=== PATIENT | female | born 1955 | race Hispanic/Latino ===

== ENCOUNTER 2020-01-07 12:27 | Inpatient (IN) | payer SELFPAY ==
[~2020-01-07] VITALS: Ht 154.9 cm; Wt 68.9 kg
--- OUTSIDE RECORDS SUMMARY | 2020-01-07 12:30 | XMS REPORT | Clinical Summary ---
Author Author [facility] Organization [facility] Address Unknown Phone Unavailable Care Team Providers Care Lead Pressman Name Role Phone PCP Unavailable Allergies Comments Active Allergy Reactions Severity Noted Date No Known Drug Allergies 07/10/2016 Medications End Date Status Medication Sig Dispensed Refills Start Date Active dexlansoprazole Take 1 180 capsule 2 (DEXILANT) 60 mg delayed capsule by 5 release mouth daily. capsuleIndications: GERD (gastroesophageal reflux disease) Active OMEPRAZOLE MAGNESIUM Take by 0 (PRILOSEC OTC OR) mouth. Active omeprazole (PRILOSEC) 20 Take 1 60 capsule 3 1 mg delayed release capsule by 5 capsuleIndications: mouth 2 times Gastroesophageal reflux daily. disease without esophagitis Active oxybutynin (OXYTROL) 3.9 Apply 1 Patch 8 Patch 3 08/15/ mg/24 hr to skin as 5 patchIndications: Urge directed 2 incontinence of urine times weekly. Active tolterodine (DETROL LA) 2 Take 1 30 capsule 3 mg extended release capsule by 6 capsuleIndications: mouth daily. Increased urinary frequency Active famotidine (PEPCID) 40 mg Take 1 tablet 90 tablet 3 tabletIndications: by mouth 6 Dyspepsia daily. Active naproxen (NAPROSYN) 375 Take 1 tablet 90 tablet 3 mg tabletIndications: by mouth 2 6 Left arm pain times daily (with meals). Active diazePAM (VALIUM) 2 mg Take 1 tablet 20 tablet 0 1 tabletIndications: by mouth 6 Phobia, flying every 6 hours as needed for Anxiety. Active lisinopril-hydrochlorothi Take 1 tablet 90 tablet 3 azide (ZESTORETIC) 20-25 by mouth 6 mg per tabletIndications: daily. Essential hypertension Active fenofibrate Take 1 tablet 90 tablet 3 nanocrystallized (TRICOR) by mouth 6 145 mg tabletIndications: daily. Hypertriglyceridemia Active mometasone (NASONEX) 50 1 [place] by 34 g 3 mcg/actuation nasal each nostril 6 sprayIndications: route daily. Seasonal allergic rhinitis, unspecified allergic rhinitis trigger Active loratadine (CLARITIN) 10 Take 1 tablet 90 tablet 1 mg tabletIndications: by mouth 6 Seasonal allergic daily. rhinitis, unspecified allergic rhinitis trigger Active codeine-guaiFENesin Take 10 mL by 120 mL 0 06/20 (CHERATUSSIN AC) 10-100 mouth 3 times 6 mg/5 mL syrupIndications: daily as Viral upper respiratory needed for illness Cough or Congestion. Active ibuprofen (MOTRIN) 600 mg Take 1 tablet 30 tablet 0 tabletIndications: Acute by mouth 6 pharyngitis, unspecified every 8 hours etiology, Viral upper as needed for respiratory illness Pain or Fever > 100.5. Active Problems Problem Noted Date Essential hypertension 09/08/2015 Rosacea 06/30/2015 Overview: 06/28/15 Hx 10 yrs,treated for last 6 y rs Increased urinary frequency 06/30/2015 Overview: 06/28/15 Problem is ongoing for last 4 years and seems to get worse. Also c/o multiple UTI. She believes frequenc y is due to cystopexy. Immunizations Name Administration Dates Next Due Influenza Vaccine 06/01/2016, 11/17/2015 (Def erred: Patient Refused) Family History Medical History Relation Name Comments Cancer Brother Leukemia Brother Heart Father Ulcers Mother Relation Name Status Comments Brother Brother Brother Alive Brother Alive Brother Alive Brother Alive Brother Alive Brother Alive Brother old age Daughter Alive Daughter Alive Daughter Alive Daughter Alive Father Mother Sister Alive Son Alive Son Alive Social History Date Tobacco Use Types Packs/Day Years Used Never Smoker Smokeless Tobacco: Never Used Tobacco Cessation: Counseling Given: No Drinks/Week oz/Week Comments Alcohol Use 0 Standard drinks or equivalent 0.0 Not Asked Sex Assigned at Date Recorded Not on file Industry Job Start Date Occupation Not on file Not on file Not on file Travel End Travel History Travel Start No recent travel history available. Last Filed Vital Signs Not on file Plan of Treatment Health Maintenance Due Date Last Done Comments Colorectal Cancer Scrn 11/27/2007 Annual (FIT/FOBT) Age 50 to 75 Breast Cancer Scrn 07/11/2017 07/11/2016, 015 (Yearly) Results Not on fileafter 01/06/2019 Insurance Type Payer Benefit Subscriber ID Effective Phone Address Plan / Dates Group [facility] SELF-PAY SELF-PAY xxxxxx 2016- [phone] [id number] [place] [address] [phone] Janett Newman Self [address]Home) [place] [address]
--- OUTSIDE RECORDS SUMMARY | 2020-01-07 12:30 | XMS REPORT ---
Author Author [facility] t Organization [facility] Address [address] [place] [address] Phone Unavailable Care Team Providers Care Schedule Announcer Name Role Phone Unavailable Unavailable Problems Condition Name Condition Details Condition Category Status Onset Date Resolution Date Last Treatment Date Treating Clinician Comments Source Essential hypertension Essential hypertension Disease Active 2015-09-08 00:00:00 [facility] Rosacea Rosacea Disease Active 2015-06-30 00:00:00 Overview: 06/28/15 Hx 10 yrs,treated for last 6 yrs [facility] Increased urinary frequency Increased urinary frequency Disease Active 2015-06-30 00:00:00 Overview: Problem is ongoing for last 4 years and seems to get worse. Also c/o multiple UTI. She believes frequency is due to cystopexy. [facility] Allergies, Adverse Reactions, Alerts This patient has no known allergies or adverse reactions. Family History Family Member Diagnosis Comments Start Date Stop Date Source Natural brother Cancer [facility] alth Natural brother Leukemia [facility] alth Natural father Heart [facility] Natural mother Ulcers [facility] Social History Social Habit Start Date Stop Date Quantity Comments Source Sex Assigned At [facility] Alcohol intake 2016-10-02 00:00:00 2016-10-02 00:00:00 [facility] Smoking Status Start Date Stop Date Source Never smoker [facility] Medications Ordered Medication Name Filled Medication Name Start Date Stop Da te Current Medication? Ordering Clinician Indication Dosage Frequency Signature (SIG) Comments Components Source codeine-guaiFENesin (CHERATUSSIN AC) 10-100 mg/5 mL syrup 2016-07-10 00:00:00 Yes Viral upper respiratory illness 10mL Take 10 mL by mouth 3 times daily as needed for Cough or Congestion. [facility] ibuprofen (MOTRIN) 600 mg tablet 2016-07-10 00:00:00 Yes Viral upper respiratory illness 600mg Take 1 tablet by carina th every 8 hours as needed for Pain or Fever > 100.5. [facility] fenofibrate nanocrystallized (TRICOR) 145 mg tablet 2015-08 00:00:00 Yes Hypertriglyceridemia 145mg QD Take 1 tablet by mouth daily. [facility] mometasone (NASONEX) 50 mcg/actuation nasal spray 2016-06-29 00:00:00 Yes Seasonal allergic rhinitis, unspecified allergic rhinitis trigger 1{spray} QD 1 [place] by each nostril route daily. [facility] loratadine (CLARITIN) 10 mg tablet 2016-06-29 00:00:00 Yes Seasonal allergic rhinitis, unspecified allergic rhinitis trigger 10mg QD Take 1 tablet by mouth daily. [facility] diazePAM (VALIUM) 2 mg tablet 2016-06-01 00:00:00 Yes Phobia, flying 2mg Take 1 tablet by mouth every 6 hours as needed for Anxiety. [facility] lisinopril-hydrochlorothiazide (ZESTORETIC) 20-25 mg per tab let 2016-06-01 00:00:00 Yes Essential hypertension 1{tbl} QD Take 1 t ablet by mouth daily. [facility] famotidine (PEPCID) 40 mg tablet 2016-03-26 00:00:00 Yes Dyspepsia 40mg QD Take 1 tablet by mouth daily. [facility] naproxen (NAPROSYN) 375 mg tablet 2016-03-26 00:00:00 Ye s Left arm pain 375mg Take 1 tablet by mouth 2 times daily (with meals). [facility] tolterodine (DETROL LA) 2 mg extended release capsule 2015-10-31 00:00:00 Yes Increased urinary frequency 2mg QD Take 1 capsule by mo ut daily. [facility] OMEPRAZOLE MAGNESIUM (PRILOSEC OTC OR) 2015-10-20 14:46:56 Yes Take by mouth. [facility] oxybutynin (OXYTROL) 3.9 mg/24 hr patch 2015-08-15 00:00:00 Yes Urge incontinence of urine 1{patch} Apply 1 Patch to s kin as directed 2 times weekly. [facility] omeprazole (PRILOSEC) 20 mg delayed release capsule 2014-08 00:00:00 Yes Gastroesophageal reflux disease without esophagitis 20mg Q.5D Take 1 capsule by mouth 2 times daily. [facility] dexlansoprazole (DEXILANT) 60 mg delayed release capsule 2015-02-17 00:00:00 Yes GERD (gastroesophageal reflux disease) 60mg QD Take 1 capsule by mouth daily. [facility] Immunizations Ordered Immunization Name Filled Immunization Name Date Status Comments Source Influenza Vaccine 2016-06-01 00:00:00 Completed [facility] Procedures This patient has no known procedures. Plan of Care Planned Activity Planned Date Details Comments Source Future Scheduled Test 2017-07-11 00:00:00 Breast Cancer Scrn (Yearly) [code = Breast Cancer Scrn (Yearly)] [facility] Future Scheduled Test 2007-11-27 00:00:00 Colorectal Cancer Scrn Annual (FIT/FOBT) Age 50 to 75 [code = Colorectal Cancer Scrn Annual (FIT/FOBT) Age 50 to 75] [facility] Results Test Description Test Time Test Comments Results Result Comments Source SCR MAMM BILATERAL CAD DIGITAL 2019-07-10 15:10:57 - SCR MAMM BILATERAL CAD DIGITALBILATERAL DIGITAL SCREENING MAMMOGRAM WITH CAD: 07/10/2019CLINICAL: Asymptomatic. Current mammographic images were evaluated by either a Twiigg M- Vu or a NCR ImageChecker CAD (computer aided detection system). Comparison is made to exams dated 07/05/2018 mammogram, 06/27/2017 mammogram - [facility], and 07/11/2016 mammogram - [facility]. There are scattered fibroglandular tissues in both breasts. No suspicious mass, architectural distortion, malignant type calcification, or lymph node abnormality detected. Breast architecture is stable compared to prior exams.IMPRESSION: NEGATIVEThere is no mammographic evidence of malignancy. Resume annual screening mammography in one year. David Lawrence M.D. qn/penrad:07/10/2019 15:10:57 Attending Technologist: Olimpia SCHREIBER, [facility] Technologist: Nora SCHREIBER, [facility] sent: BIRADS 1-2 Normal Mammogram BI-RADS: 1 Negative SCR MAMM BILATERAL CAD DIGITAL 2018-07-07 08:47:08 - SCR MAMM BILATERAL CAD DIGITALBILATERAL DIGITAL SCREENING MAMMOGRAM WITH CAD: 07/05/2018CLINICAL: Asymptomatic. Current mammographic images were evaluated by either a Twiigg M- Vu or a NCR ImageChecker CAD (computer aided detection system). Comparison is made to exams dated 06/27/2017 mammogram - [facility], 07/11/2016 mammogram, and 06/27/2015 mammogram - [facility]. There are scattered fibroglandular tissues in both breasts. No suspicious mass, architectural distortion, malignant type calcification, or lymph node abnormality detected. Breast architecture is stable compared to prior exams.IMPRESSION: NEGATIVEThere is no mammographic evidence of malignancy. Resume annual screening mammography in one year. David villarreal/penautumn:07/07/2018 08:47:08 Water Pollution Control Inspector: Dena SCHREIBER, [facility] sent: BIRADS 1-2 Normal Mammogram BI-RADS: 1 Negative
--- NOTE | 2020-01-07 13:18 | Diagnostic Imaging Report ---
X-ray chest frontal view Comparison: None History: Burning sensation Findings: Normal central airways, cardiac silhouette, diaphragms, pleural spaces, lung nunez, bony thorax and upper abdomen. The descending thoracic aorta is slightly prominent. Impression: No acute cardiopulmonary abnormality. Signed by: Robin Callejas MD on 01/07/2020 1:15 PM
[2020-01-07] MEDS ORDERED: ASPIRIN 325 MG TAB PO ONE (13:45)
[2020-01-07] MEDS ORDERED: ENOXAPARIN INJ 80 MG/0.8 ML SYR SC SCH (13:45)
--- NOTE | 2020-01-07 14:08 | Emergency Department Note ---
History of Present Illnes History of Present Illness Chief Complaint: Chest Pain History of Present Illness This is a 64 year old female with left side chest pain, no radiation, n o diaphoresis . Historian: Patient, Family Member Onset (how long ago): hour(s) (1) Location: left chest Quality: dull Radiation: non-radiation Severity: mild Onset quality: gradual Duration (how long): day(s) (1) Timing of current episode: intermittent Progression: waxing and waning Chronicity: new Relieving factors: none Exacerbating factors: none Associated symptoms: denies other symptoms Past Medical/Family History Physician Review I have reviewed the patient's past medical and family history. Any updates have been documented here. Past Medical History Recent Fever: No Clinical Suspicion of Infectio: No New/Unexplained Change in Ment: No Past Medical History: Hypertension, Hyperlipedemia Past Surgical History: Cholecysctectomy, Appendectomy, Hysterectomy Social History Smoking Cessation: Never Smoker Counseling Performed: No Alcohol Use: None Any Illegal Drug Use: No TB Exposure/Symptoms: No Physically hurt or threatened: No Other Last Tetanus: unknown Any Pre-Existing Lines (PICC,: No Is patient up to date on immun: Yes Last Flu: none Last Pneumovax: none Review of Systems Review of Systems Constitutional: no symptoms EENTM: no symptoms Cardiovascular: no symptoms, chest pain Respiratory: no symptoms Gastrointestinal: no symptoms Genitourinary: no symptoms Musculoskeletal: no symptoms Neurological: no symptoms Psychological: no symptoms Endocrine: no symptoms Hematological/Lymphatic: no symptoms Review of other systems All other systems reviewed and negative. Physical Exam Related Data Triage Vital Signs Vital Signs Date Time Temp Pulse Resp B/P (MAP) Pulse Ox O2 Delivery O2 Flow Rate FiO2 01/07/20 12:35 98.4 82 17 130/62 100 Vital signs reviewed: Yes Physical Exam CONSTITUTIONAL Constitutional: well-developed, well-nourished HENT HENT: normocephalic, atraumatic, oropharynx clear/moist, nose normal HENT L/R: left ext ear normal, right ext ear normal EYES Eyes: PERRL, conjunctivae normal NECK Neck: ROM normal PULMONARY Pulmonary: effort normal, breath sounds normal CARDIOVASCULAR Cardiovascular: regular rhythm, heart sounds normal, capillary refill normal, normal rate GASTROINTESTINAL Abdominal: soft, nontender, bowel sounds normal GENITOURINARY Genitourinary: exam deferred SKIN Skin: warm, dry MUSCULOSKELETAL Musculoskeletal: ROM normal NEUROLOGICAL Neurological: alert, oriented x 3, no gross motor or sensory deficits PSYCHOLOGICAL Psychological: mood/affect normal, judgement normal Results Laboratory Lab results reviewed: Yes Imaging Imaging results reviewed: Yes Procedures 12 Lead ECG Interpretation Surgeon Partner: Interpreted by ED physician Date: January 07, 2020 Time: 12:32 Rhythm: sinus rhythm Rate: normal BPM: 84 QRS axis: normal ST segments depression: II, III, aVF, V4, V5, V6 T wave depression: II, III, aVF, V4, V5, V6 Other findings: no other findings Critical Care Time Subsequent provider I assumed direction of critical care for this patient from another provider of my specialty. Assessment & Plan Reassessment Reassessment time: 14:07 Reassessment improved Assessment & Plan Final Impression: (1) Chest pain (2) NSTEMI (non-ST elevated myocardial infarction) Assessment & Plan admit asa and lovenox Last Vital Signs Date Time Temp Pulse Resp B/P (MAP) Pulse Ox O2 Delivery O2 Flow Rate FiO2 01/07/20 12:35 98.4 82 17 130/62 100 Medications in the ED Aspirin 325 mg ONCE ONCE PO ; Start 01/07/20 at 13:45; Stop 01/07/20 at 13:54; Status DC Enoxaparin Sodium 70 mg ONCE SC ; Start 01/07/20 at 13:45; Stop 01/14/20 at 13:44 SMITHA GANN MD January 07, 2020 14:08
[2020-01-07] MEDS ORDERED: ASPIRIN 325 MG TAB ONE (14:10)
[2020-01-07] MEDS ORDERED: ENOXAPARIN SODIUM INJ 100 MG/ML SYR SC ONE (14:10)
[2020-01-07] MEDS ORDERED: NITROGLYCERIN 0.4 MG SUBL SL PRN (14:15)
[2020-01-07] MEDS ORDERED: ASPIRIN 81 MG CHEW TAB PO ONE (14:15)
--- NOTE | 2020-01-07 14:15 | NUR ---
[facility] notified of [facility], ET 45 mintues
--- OUTSIDE RECORDS SUMMARY | 2020-01-07 14:19 | XMS REPORT ---
Author Author [facility] t Organization [facility] Address [address] [place] [address] Phone Unavailable Care Team Providers Care Employee Benefits Attorney Name Role Phone SMITHA GANN Unavailable Problems Condition Name Condition Details Condition Category Status Onset Date Resolution Date Last Treatment Date Treating Clinician Comments Source Essential hypertension Essential hypertension Disease Active 2015-09-08 00:00:[address] [facility] Rosacea Rosacea Disease Active 2015-06-30 00:00:00 Overview: 06/28/15 Hx 10 yrs,treated for last [address] [facility] Increased urinary frequency Increased urinary frequency Disease Active 2015-06-30 00:00:00 Overview: Problem is ongoing for last 4 years and seems to get worse. Also c/o multiple UTI. She believes frequency is due to cystopexy. [facility] Allergies, Adverse Reactions, Alerts This patient has no known allergies or adverse reactions. Family History Family Member Diagnosis Comments Start Date Stop Date Source Natural brother Cancer [facility] alth Natural brother Leukemia [facility] Natural mother Ulcers [facility] Social History Social Habit Start Date Stop Date Quantity Comments Source Sex Assigned At [facility] Alcohol intake 2016-10-02 00:00:00 2016-10-02 00:00:[address] [facility] Smoking Status Start Date Stop Date Source Never smoker [facility] Medications Ordered Medication Name Filled Medication Name Start Date Stop Da te Current Medication? Ordering Clinician Indication Dosage Frequency Signature (SIG) Comments Components Source codeine-guaiFENesin (CHERATUSSIN AC) 10-100 mg/5 mL syrup 2016-07-10 00:00:00 Yes Viral upper respiratory illness 10mL Take 10 mL by mouth 3 times daily as needed for Cough or Congestion. [facility] ibuprofen (MOTRIN) 600 mg tablet 2016-07-10 00:00:00 Yes Viral upper respiratory illness 600mg Take 1 tablet by carina th every 8 hours as needed for Pain or Fever > 100.5. [facility] fenofibrate nanocrystallized (TRICOR) 145 mg tablet 2015-08 00:00:00 Yes Hypertriglyceridemia 145mg QD Take 1 tablet by mouth daily. [facility] mometasone (NASONEX) 50 mcg/actuation nasal spray 2016-06-29 00:00:00 Yes Seasonal allergic rhinitis, unspecified allergic rhinitis trigger 1{spray} QD 1 [place] by each nostril route daily. [facility] loratadine (CLARITIN) 10 mg tablet 2016-06-29 00:00:00 Yes Seasonal allergic rhinitis, unspecified allergic rhinitis trigger 10mg QD Take 1 tablet by mouth daily. [facility] diazePAM (VALIUM) 2 mg tablet 2016-06-01 00:00:00 Yes Phobia, flying 2mg Take 1 tablet by mouth every 6 hours as needed for Anxiety. [facility] lisinopril-hydrochlorothiazide (ZESTORETIC) 20-25 mg per tab let 2016-06-01 00:00:00 Yes Essential hypertension 1{tbl} QD Take 1 t ablet by mouth daily. [facility] famotidine (PEPCID) 40 mg tablet 2016-03-26 00:00:00 Yes Dyspepsia 40mg QD Take 1 tablet by mouth daily. [facility] naproxen (NAPROSYN) 375 mg tablet 2016-03-26 00:00:00 Ye s Left arm pain 375mg Take 1 tablet by mouth 2 times daily (with meals). [facility] tolterodine (DETROL LA) 2 mg extended release capsule 2015-10-31 00:00:00 Yes Increased urinary frequency 2mg QD Take 1 capsule by mo [facility] daily. [facility] OMEPRAZOLE MAGNESIUM (PRILOSEC OTC OR) 2015-10-20 14:46:56 Yes Take by mouth. [facility] oxybutynin (OXYTROL) 3.9 mg/24 hr patch 2015-08-15 00:00:00 Yes Urge incontinence of urine 1{patch} Apply 1 Patch to s kin as directed [address] [facility] omeprazole (PRILOSEC) 20 mg delayed release capsule 2014-08 00:00:00 Yes Gastroesophageal reflux disease without esophagitis 20mg Q.5D Take 1 capsule by mouth [address] [facility] dexlansoprazole (DEXILANT) 60 mg delayed release capsule 2015-02-17 00:00:00 Yes GERD (gastroesophageal reflux disease) 60mg QD Take 1 capsule by mouth daily. [facility] Immunizations Ordered Immunization Name Filled Immunization Name Date Status Comments Source Influenza Vaccine 2016-06-01 00:00:[address] [facility] Procedures This patient has no known procedures. Plan of Care Planned Activity Planned Date Details Comments Source Future Scheduled Test 2017-07-11 00:00:00 Breast Cancer Scrn (Yearly) [code = Breast Cancer Scrn (Yearly)] [facility] Future Scheduled Test 2007-11-27 00:00:00 Colorectal Cancer Scrn Annual (FIT/FOBT) Age 50 to 75 [code = Colorectal Cancer Scrn Annual (FIT/FOBT) Age 50 to 75] [facility] Results Test Description Test Time Test Comments Results Result Comments Source CXR 1 VEW - HOPD 2020-01-07 13:13:00 [place] [address] Patient Name: KETTY NEWMAN MR #: [id number] : 1955 Age/Sex: 64/F Req #: [id number] Adm Physician: Ordered by: SMITHA GANN MD Report #: [id number] Location: [facility] Room/Bed: Procedure: [id number] HOPD/CXR 1 VEW - HOPD Exam Date: 01/07/20 Exam Time: 1300 REPORT STATUS: Signed X-ray chest frontal view Comparison: None History: Burning sensation Findings: Normal central airways, cardiac silhouette, diaphragms, pleural spaces, lung nunez, bony thorax and upper abdomen. The descending thoracic aorta is slightly prominent. Impression: No acute cardiopulmonary abnormality. Signed by: Faustino Garcia MD on 01/07/2020 1:15 PM Dictated By: FAUSTINO GARCIA MD [id number] Transcribed By: CHICO on 01/07/20 1315 COPY TO: SMITHA GANN MD SCR MAMM BILATERAL CAD DIGITAL 2019-07-10 15:10:57 - SCR MAMM BILATERAL CAD DIGITALBILATERAL DIGITAL SCREENING MAMMOGRAM WITH CAD: 07/10/2019CLINICAL: Asymptomatic. Current mammographic images were evaluated by either a FluencyP M- Vu or a Ideal Mecker CAD (computer aided detection system). Comparison is made to exams dated 07/05/2018 mammogram, [facility] and [facility] - [facility]. There are scattered fibroglandular tissues in both breasts. No suspicious mass, architectural distortion, malignant type calcification, or lymph node abnormality detected. Breast architecture is stable compared to prior exams.IMPRESSION: NEGATIVEThere is no mammographic evidence of malignancy. Resume annual screening mammography in one year. David villarreal/penrad:07/10/2019 15:10:57 Attending Technologist: Olimpia SCHREIBER, [facility] Technologist: Nora SCHREIBER, [facility] sent: BIRADS 1-2 Normal Mammogram BI-RADS: 1 Negative SCR MAMM BILATERAL CAD DIGITAL 2018-07-07 08:47:08 - SCR MAMM BILATERAL CAD DIGITALBILATERAL DIGITAL SCREENING MAMMOGRAM WITH CAD: 07/05/2018CLINICAL: Asymptomatic. Current mammographic images were evaluated by either a FluencyP M- Vu or a Ideal Mecker CAD (computer aided detection system). Comparison is made to exams dated [facility], 07/11/2016 mammogram, and 06/27/2015 mammogram - [facility]. There are scattered fibroglandular tissues in both breasts. No suspicious mass, architectural distortion, malignant type calcification, or lymph node abnormality detected. Breast architecture is stable compared to prior exams.IMPRESSION: NEGATIVEThere is no mammographic evidence of malignancy. Resume annual screening mammography in one year. David villarreal/juma:07/07/2018 08:47:08 Manager Emergency: Dena SCHREIBER, [facility] sent: BIRADS 1-2 Normal Mammogram BI-RADS: 1 Negative
--- OUTSIDE RECORDS SUMMARY | 2020-01-07 14:19 | XMS REPORT | Clinical Summary ---
Author Author [facility] Organization [facility] Address Unknown Phone Unavailable Care Team Providers Care Digital Project Coordinator Name Role Phone PCP Unavailable Allergies Comments [...] daily. Hypertriglyceridemia Active mometasone (NASONEX) 50 1 [place] by 34 g 3 mcg/actuation nasal each [...] Effective Phone Address Plan / Dates Group [facility] SEL[employer]-PAY SELF-PAY xxxxxx 2016- [phone] [address] [place] [phone] Janett Newman Self [address] (Home) [place] [address]
[2020-01-07 16:14] VITALS: BP 108/71
[2020-01-07 16:35] VITALS: BP 108/71
[2020-01-07 17:31] LABS: CREATINE KINASE MB 2.2 ng/mL (0-5.0)
[2020-01-07 17:48] LABS: CHOL/HDL RATIO 4.3 (3.0-3.6)
[2020-01-07 18:09] LABS: FREE THYROXINE INDEX 2.4027 (1.4-3.8); THYROID STIMULATING HORMONE 1.105 uIU/mL (0.350-4.940)
[2020-01-07 20:00] VITALS: BP 112/66
[2020-01-07] MEDS ORDERED: ACETAMINOPHEN 325 MG TAB PO PRN (20:00)
[2020-01-07] MEDS ORDERED: MELATONIN 5 MG TABLET PO SCH (21:00)
--- NOTE | 2020-01-07 21:55 | History and Physical ---
CHIEF COMPLAINT: A 64-year-old female, who comes in with chest pain. HISTORY OF PRESENT ILLNESS: This is a 64-year-old female with a history of hypertension, hyperlipidemia, and depression, was in usually health until the patient received some bad news from [place], her brother had . This put her into a sense of delirium and as per the past family, the patient has been having a bad time and having multiple delirious episodes ever since. The patient developed some chest pain and symptoms of burning in the chest and this prompted the patient's children to bring her to the emergency room. Here, the patient's EKG was found to be normal, but the troponins were elevated. The patient was admitted for non-STEMI. PAST MEDICAL HISTORY: History of hypertension, hyperlipidemia, and depression. MEDICATIONS: She takes at home, lisinopril/hydrochlorothiazide 20/25. The patient takes atorvastatin 20 mg at nighttime and also takes fluoxetine 20 mg daily. PAST SURGICAL HISTORY: Hysterectomy, partial hysterectomy, and also tubal ligation and cholecystectomy. SOCIAL HISTORY: No EtOH. No IV drug abuse. No history of smoking either. The patient is a 6, para 6. REVIEW OF SYSTEMS: Positive for chest pain. No shortness of breath. No nausea. No vomiting or diarrhea. No constipation. No rectal bleeding. No hematochezia. No hematemesis. No radiation of the pain. No diplopia. No blurry vision. No paresthesias or hyperesthesias. ALLERGIES: NO KNOWN ALLERGIES. PHYSICAL EXAMINATION: GENERAL: The patient is alert and oriented x3. VITAL SIGNS: Temperature is 98.4, pulse of 82, respirations 17, blood pressure is 130/62, pulse oximetry 100% on room air. HEENT: Normocephalic, atraumatic. Pupils are reactive to light and accommodation. CVS: S1 and S2 normal. Regular rate and rhythm. ABDOMEN: Nontender and nondistended. EXTREMITIES: No clubbing, no cyanosis and/or no edema. LABORATORY VALUES: Initial chem 7 shows sodium of 139, potassium of 3.2, CO2 of 29, glucose of 120, BUN of 11 and creatinine of 1.3, T bilirubin was 1.7. Troponin was elevated at 1.09, CK-MB 6.3, myoglobin of 89.2. Urine drug screen was negative for all. The patient's urine shows [place] [address], hemoglobin of 13.6, hematocrit 41.7, platelet count is 263. Chest x-ray is shows no acute cardiopulmonary abnormalities. ASSESSMENT: Ms. Janett Newman with: 1. Non-ST elevation myocardial infarction, elevated myocardial enzymes. 2. Hypertension. 3. Hyperlipidemia. 4. Depression. PLAN: Cardiology consult has been done. The patient has been given aspirin and Lovenox, put on oxygen and a consult with Dr. Adams has been done to. Plan will be to trend the troponins, echocardiogram will be done and lipid profile will be done. Aspirin and oxygen already given and anticoagulation. Further recommendation per clinical course and also Cardiology evaluation and recommendation. MD AMARILYS Guzmán/MODL /[id number]
[2020-01-08] VITALS: BP 107/64
[2020-01-08 00:14] LABS: CREATINE KINASE MB 1.2 ng/mL (0-5.0)
[2020-01-08 04:00] VITALS: BP 105/67
[2020-01-08 06:28] LABS: CREATINE KINASE MB 1.1 ng/mL (0-5.0)
[2020-01-08 06:47] LABS: CHOL/HDL RATIO 5.1 (3.0-3.6)
[2020-01-08 07:44] VITALS: BP 97/51
[2020-01-08] MEDS ORDERED: INFLUENZA VIRUS VAC SPLIT INJ 0.5 ML SYR IM SCH ×2 (08:28→18:00)
[2020-01-08 08:42] VITALS: BP 97/51
[2020-01-08] MEDS ORDERED: ASPIRIN 325 MG TAB EC PO SCH (09:00)
--- NOTE | 2020-01-08 09:17 | Consultation ---
DATE OF CONSULTATION: 01/07/2020 Cardiology Consult Note REASON FOR CONSULT: REASON FOR CONSULT: Chest pain. CHIEF COMPLAINT: Chest and left arm pain. HISTORY OF PRESENT ILLNESS: A 64-year-old female with history of hypertension, who presents with substernal chest discomfort. She also reports chronic left arm pain and neck pain. Her discomforts are nonexertional and occur at rest. It had been happening for the past 2 days ever since she found out her brother had . She does have history of anxiety disorder as well and does not smoke. No family history of early CAD. No prior history of cardiovascular issues or MD. PAST MEDICAL HISTORY: As described above. SOCIAL HISTORY: Does not smoke, drink, or abuse drugs. FAMILY HISTORY: Noncontributory. OUTPATIENT MEDICATIONS: Reviewed. REVIEW OF SYSTEMS: As per HPI, otherwise negative. OBJECTIVE: VITAL SIGNS: Temperature afebrile, pulse 86, respiratory rate 17, blood pressure 127/72, saturating 100% on room air. GENERAL: Middle-aged female, well developed, well nourished, in no acute distress. CARDIOVASCULAR: Regular rate and rhythm. No murmurs, rubs, or gallops. LUNGS: Clear to auscultation bilaterally. ABDOMEN: Soft, nontender, nondistended. NEURO AND PSYCH: Alert and oriented to person, place, and time. Normal affect. INPATIENT MEDICATIONS: Reviewed. LABORATORY DATA: Reviewed. Troponins negative x1. TELEMETRY DATA: Reviewed . EKG reviewed, shows some inferolateral downsloping ST depressions with normal sinus rhythm. No ST elevations or signs of acute MD. ASSESSMENT: 1. Chest pain. 2. Abnormal EKG. PLAN: She is a difficult historian. Her story is complicated by her recent distress from her brother's , however, given abnormal EKG and no prior cardiovascular workup, we will plan for stress test in the morning. Further recommendations depending on results of the stress test. Thank you for this consult. We will continue to follow. MD GO Landon/VINCENT /[id number]
[2020-01-08 11:52] VITALS: BP 114/60
[2020-01-08] MEDS ORDERED: REGADENOSON 0.4 MG/5 ML SYR IV ONE (12:10)
[2020-01-08 15:39] VITALS: BP 114/70
[2020-01-08] MEDS ORDERED: LISINOPRIL10 MG PO (17:41)
[2020-01-08] MEDS ORDERED: HYDROCHLOROTHIA25 MG PO (17:42)
[2020-01-08] MEDS ORDERED: ATORVASTATIN CA20 MG PO (17:43)
[2020-01-08] MEDS ORDERED: FLUOXETINE HCL20 MG PO (17:44)
[2020-01-08] MEDS ORDERED: ASPIR 8181 MG PO (17:45)
--- NOTE | 2020-01-12 15:36 | Operative Report ---
DATE OF PROCEDURE: 01/08/2020 SURGEON: Khoa Downs MD Lexiscan nuclear stress test. INDICATION: Chest pain. ACCESSION NUMBER: [id number]. Rest and stress Myoview imaging was obtained. Lexiscan was used as stress agent. Resting electrocardiogram shows sinus rhythm with ST depression. Resting heart rate 72 beats and resting blood pressure 119/71. Following Lexiscan infusion, no EKG changes were noted. Both nuclear imaging and resting stress is normal. Normal contractility of the left ventricle. CONCLUSIONS: 1. Normal Lexiscan nuclear stress test without evidence of ischemia infarction. 2. LV ejection fraction is 50%. Khoa Downs MD KSB/MODL /[id number]
== END 2020-01-08 18:07 | disposition home or self-care (01) | DRG 313 ==
LOC: FSED 12:27 → ERHOLD 14:12 → MED/SURG 15:52
PROVIDERS: ADMIT Family Medicine; ATTEND Family Medicine
DX: R07.9 Chest pain, unspecified (principal); E11.9 Type 2 diabetes mellitus without complications; E78.5 Hyperlipidemia, unspecified; F32.9 Major depressive disorder, single episode, unspecified; F41.9 Anxiety disorder, unspecified; R94.31 Abnormal electrocardiogram [ECG] [EKG]; I10 Essential (primary) hypertension
CPT/HCPCS: 36415; 71045; 78452; 80053; 80061; 82550; 82553; 84436; 84443; 84479; 84484; 85025; 93005; 93017; 99284; A9502; J1650

== ENCOUNTER 2022-04-19 16:02 | Emergency (ER) | payer SELFPAY ==
[~2022-04-19] VITALS: Ht 157.5 cm; Wt 65.0 kg
[~2022-04-19 16:02] MED LIST: ASPIR 8181 MG PO; ATORVASTATIN CA20 MG PO; CEFDINIR300 MG PO; FLUOXETINE HCL20 MG PO; HYDROCHLOROTHIA25 MG PO; LISINOPRIL-HCT1 EAC1; LISINOPRIL10 MG PO
[2022-04-19] MEDS ORDERED: ONDANSETRON HCL INJ 2MG/ML 2ML 2 MG/ML VIAL IV STA (16:19)
[2022-04-19] MEDS ORDERED: SODIUM CHLORIDE 0.9% 1000ML 1,000 ML IV SCH (16:30)
[2022-04-19] MEDS ORDERED: SODIUM CHLORIDE 0.9% 1000ML 1,000 ML ONE (16:58)
[2022-04-19] MEDS ORDERED: ONDANSETRON HCL INJ 2MG/ML 2ML 2 MG/ML VIAL ONE (16:58)
[2022-04-19] MEDS ORDERED: ONDANSETRON ODT4 MG PO (17:25)
== END 2022-04-19 18:13 | disposition home or self-care (01) ==
LOC: FSED 16:18
DX: R11.2 Nausea with vomiting, unspecified (principal); R42 Dizziness and giddiness; R51.9 Headache, unspecified; E11.65 Type 2 diabetes mellitus with hyperglycemia; I10 Essential (primary) hypertension; E78.5 Hyperlipidemia, unspecified; F32.A Depression, unspecified
CPT/HCPCS: 70450; 71045; 80053; 81003; 82553; 84484; 85025; 85610; 93005; 96374; 99284; J2405; J7030